=== PATIENT | female | born 1985 | race Two or more races ===

== ENCOUNTER 2025-01-17 21:42 | Emergency (ER) | payer OTHER ==
[~2025-01-17] VITALS: Ht 162.6 cm; Wt 72.6 kg
[2025-01-17 21:47] VITALS: TEMP 98.2
[2025-01-18 00:05] VITALS: BP 109/65; O2SAT 98
== END 2025-01-18 00:05 | disposition home or self-care (01) ==
LOC: ER 21:44
DX: Z00.00 Encounter for general adult medical examination without abnormal findings (principal)

== ENCOUNTER 2025-07-04 06:10 | Emergency (ER) | payer OTHER ==
[~2025-07-04] VITALS: Ht 157.5 cm; Wt 68.0 kg
[2025-07-04 06:37] VITALS: BP 129/81; TEMP 98.3
[2025-07-04 06:40] VITALS: O2SAT 99
== END 2025-07-04 07:36 | disposition home or self-care (01) ==
LOC: ER 06:15
DX: Z00.00 Encounter for general adult medical examination without abnormal findings (principal); Z59.00 Homelessness unspecified